=== PATIENT | female | born 1980 | race Caucasian/White ===

== ENCOUNTER 2024-02-17 15:20 | Emergency (ER) | payer MEDICAID ==
[~2024-02-17] VITALS: Ht 162.6 cm; Wt 69.0 kg
[2024-02-17 15:39] VITALS: O2SAT 98
[2024-02-17 16:50] LABS: BASOPHILS % 0.7 % (0.0-2.0); EOSINOPHILS % 1.8 % (0.0-5.0); HEMATOCRIT. 42.4 % (36.0-48.0); HEMOGLOBIN. 14.2 g/dL (12.0-16.0); LYMPHOCYTES % 28.9 % (20.0-50.0); MEAN CORPUSCULAR HEMOGLOBIN 29.9 pg (28.0-32.0); MEAN CORPUSCULAR HGB CONC 33.5 g/dL (31.0-37.0); MEAN CORPUSCULAR VOLUME 89.2 fL (81.0-99.0); MEAN PLATELET VOLUME 7.4 fl (7.4-10.4); MONOCYTES % 4.1 % (2.0-8.0); NEUTROPHILS % 64.5 % (40.0-76.0); PLATELET 503 x1000/uL (130-400); RED BLOOD CELL COUNT 4.75 mill/uL (4.2-5.4); WHITE BLOOD COUNT 7.6 x1000/uL (4.5-11.0)
[2024-02-17 16:51] LABS: CHLORIDE 107 mEq/L (98-107); POTASSIUM 3.9 mEq/L (3.5-5.1); SODIUM 140 mEq/L (136-145)
[2024-02-17 16:52] LABS: CARBON DIOXIDE 27 mEq/L (21-32)
[2024-02-17 16:57] LABS: CREATININE 0.7 mg/dL (0.6-1.0)
[2024-02-17 16:58] LABS: GLUCOSE 144 mg/dL (70-105); UREA NITROGEN BLOOD 5 mg/dL (9-23)
[2024-02-17 17:01] LABS: TROPONIN I HIGH SENSITIVITY < 4 ng/L (3.0-34)
[2024-02-17 20:54] LABS: HCG SCREEN NEGATIVE
[2024-02-17] MEDS: KETOROLAC 30MG/ML VIAL IM ONE (21:11)
[2024-02-17] MEDS: ONDANSETRON 4MG ODT PO ONE (21:11)
[2024-02-17] MEDS: ACETAMINOPHEN 325MG TABLET PO ONE (21:11)
[2024-02-17 22:48] VITALS: BP 147/74; PULSE 53; RESP 14; TEMP 36.72516; O2SAT 100
== END 2024-02-17 22:56 | disposition home or self-care (01) ==
LOC: ER 15:20
DX: R51.9 Headache, unspecified (principal)
CPT/HCPCS: 99285; 70450; 80048; 84703; 85025; 84484; 36415; 96372; Q0162; J1885